=== PATIENT | male | born 1985 | race Caucasian/White ===

== ENCOUNTER → 2016-10-04 | Outpatient (CLI) | payer OTHER ==
[2016-10-04 20:10] LABS: ALBUMIN 3.8 GM/DL (3.2-5.2); ALBUMIN/GLOBULIN RATIO 1.19 (1.00-1.93); BILIRUBIN,DIRECT 0.1 MG/DL (0.0-0.2); BILIRUBIN,TOTAL 0.5 MG/DL (0.2-1.0)
[2016-10-04 20:31] LABS: BASO % 0.5 % (0.0-1.0); EOS # 0.1 K/mm3 (0.0-0.50); EOS % 1.4 % (0.0-3.0); LARGE UNSTAINED CELL # 0.1 K/mm3 (0.0-0.4); LARGE UNSTAINED CELL % 1.9 % (0.0-4.0); LYMPH # 2.2 K/mm3 (1.5-4.5); LYMPH % 32.6 % (24.0-44.0); MEAN CORPUSCULAR HEMOGLOBIN 31.4 pg (27.0-33.0); MEAN CORPUSCULAR HGB CONC 34.4 g/dl (32.0-36.5); MEAN CORPUSCULAR VOLUME 91.4 fl (80.0-96.0); MONO # 0.4 K/mm3 (0.0-0.8); MONO % 5.2 % (0.0-5.0); NEUTROPHILS % 58.4 % (36.0-66.0); PLATELET COUNT, AUTOMATED 281 k/mm3 (150-450); RED CELL DISTRIBUTION WIDTH 12.7 % (11.5-14.5); WHITE BLOOD COUNT 6.8 K/mm3 (4.0-10.0)
== END ==
LOC: M LRY 17:03
PROVIDERS: ATTEND Internal Medicine Gastroenterology
DX: K51.90 Ulcerative colitis, unspecified, without complications (principal)

== ENCOUNTER 2017-03-13 08:33 | Outpatient (RCR) | payer OTHER | END 2017-03-25 | LOC: M PT 08:33 | DX: Z51.89 Encounter for other specified aftercare (principal); L40.0 Psoriasis vulgaris ==

== ENCOUNTER 2017-03-28 12:22 | Outpatient (RCR) | payer OTHER | END 2017-04-25 | LOC: M PT 04-02 08:29 | DX: Z51.89 Encounter for other specified aftercare (principal); L40.0 Psoriasis vulgaris | CPT/HCPCS: 97028 ==

== ENCOUNTER 2017-04-26 08:55 | Outpatient (RCR) | payer OTHER | END 2017-05-23 | LOC: M PT 04-27 08:30 | DX: L40.0 Psoriasis vulgaris (principal) | CPT/HCPCS: 97028 ==

== ENCOUNTER 2018-09-02 08:57 | Emergency (ER) | payer OTHER ==
[~2018-09-02] VITALS: Ht 172.7 cm; Wt 53.2 kg
[2018-09-02 08:58] VITALS: BP 138/81
[2018-09-02] MEDS ORDERED: SUBO8MIS (09:04)
[2018-09-02] MEDS ORDERED: DELZ400C (09:04)
[2018-09-02] MEDS ORDERED: FLUORESCEIN OPHTH 1 MG STRIP OD ONE (09:30)
[2018-09-02] MEDS ORDERED: TETRACAINE 0.5% OPHTH SOLN 4ML OD ONE (09:30)
[2018-09-02] MEDS ORDERED: KETOROLAC TROMETHAMINE 10 MG TAB PO ONE (09:45)
[2018-09-02] MEDS ORDERED: CIPROFLOXACIN 0.3% OPHTH OINTMENT OU ONE (09:45)
[2018-09-02] MEDS ORDERED: KETO10TAB PO (09:47)
[2018-09-02] MEDS ORDERED: CIPR0.3S OU (09:47)
== END 2018-09-02 10:05 | disposition home or self-care (01) ==
LOC: M ED 09:44
DX: S05.01XA Injury of conjunctiva and corneal abrasion without foreign body, right eye, initial encounter (principal); X58.XXXA Exposure to other specified factors, initial encounter; Y92.89 Other specified places as the place of occurrence of the external cause; Z79.891 Long term (current) use of opiate analgesic; Z88.0 Allergy status to penicillin; F17.210 Nicotine dependence, cigarettes, uncomplicated

== ENCOUNTER 2018-09-04 10:43 | Emergency (ER) | payer OTHER ==
[~2018-09-04] VITALS: Ht 175.3 cm; Wt 54.5 kg
[~2018-09-04 10:43] MED LIST: CIPR0.3S OU; DELZ400C; KETO10TAB PO; SUBO8MIS
[2018-09-04 11:24] LABS: HEMATOCRIT 50.1 % (42.0-52.0); HEMOGLOBIN 16.4 g/dl (13.5-17.5); MEAN CORPUSCULAR HGB CONC 32.7 g/dl (32.0-36.5); MEAN CORPUSCULAR VOLUME 100.8 fl (80.0-96.0); PLATELET COUNT, AUTOMATED 447 10^3/uL (150-450); RED BLOOD COUNT 4.97 10^6/uL (4.30-6.10); WHITE BLOOD COUNT 6.1 10^3/uL (4.0-10.0)
[2018-09-04 11:55] LABS: AMPHETAMINES LEVEL URINE NEGATIVE (NEGATIVE); BARBITURATES URINE NEGATIVE (NEGATIVE); BENZODIAZEPINES URINE NEGATIVE (NEGATIVE); CANNABINOIDS URINE POSITIVE (NEGATIVE); COCAINE METABOLITE URINE NEGATIVE (NEGATIVE); METHADONE URINE NEGATIVE (NEGATIVE)
[2018-09-04 11:56] LABS: OPIATES URINE NEGATIVE (NEGATIVE); PHENCYCLIDINE URINE NEGATIVE (NEGATIVE)
[2018-09-04 12:02] LABS: ACETAMINOPHEN LEVEL < 2.0 UG/ML (10.0-30.0); ALBUMIN 3.6 GM/DL (3.2-5.2); ALT/SGPT 25 U/L (12-78); BILIRUBIN,DIRECT 0.1 MG/DL (0.0-0.2); BILIRUBIN,TOTAL 0.2 MG/DL (0.2-1.0); BLOOD UREA NITROGEN 11 MG/DL (7-18); CALCIUM LEVEL 8.6 MG/DL (8.5-10.1); CARBON DIOXIDE LEVEL 32 MEQ/L (21-32); CHLORIDE LEVEL 105 MEQ/L (98-107); CPK CREATINE PHOSPHOKINASE 256 U/L (39-308); ETHYL ALCOHOL (ETHANOL) 0.188 % (0.000-0.010); GLOMERULAR FILTRATION RATE > 60.0 (>60); GLUCOSE, FASTING 96 MG/DL (70-100); POTASSIUM SERUM 4.9 MEQ/L (3.5-5.1); SALICYLATE LEVEL < 1.7 MG/DL (5.0-30.0); SODIUM LEVEL 143 MEQ/L (136-145); THYROID STIMULATING HORMONE 0.843 uIU/ML (0.358-3.740); TOTAL PROTEIN 7.6 GM/DL (6.4-8.2)
[2018-09-04] MEDS ORDERED: BUPRENORPHINE/NALOXONE 8-2MG SUBLINGUAL TABLET(SUBOXONE) SL ONE (13:00)
[2018-09-04] MEDS ORDERED: ACETAMINOPHEN TAB 650MG DOSE (2X325MG) PO ONE (13:00)
[2018-09-04 13:41] VITALS: BP 127/72
== END 2018-09-04 13:42 | disposition home or self-care (01) ==
LOC: M ED 10:43
DX: F10.10 Alcohol abuse, uncomplicated (principal); F43.0 Acute stress reaction; F11.10 Opioid abuse, uncomplicated; L40.9 Psoriasis, unspecified; Z79.899 Other long term (current) drug therapy; Z88.0 Allergy status to penicillin
CPT/HCPCS: 80048; 80076; 80307; 82550; 84443; 85027; 99284; G0480

== ENCOUNTER → 2018-10-30 | Outpatient (CLI) | payer MEDICAID | LOC: M OUTALCOH 08:13 | PROVIDERS: ATTEND Psychiatry & Neurology Psychiatry | DX: F10.20 Alcohol dependence, uncomplicated (principal); F12.20 Cannabis dependence, uncomplicated ==

== ENCOUNTER 2018-11-05 10:52 | Outpatient (RCR) | payer MEDICAID | END 2018-11-23 | LOC: M OUTALCOH 10:52 | PROVIDERS: ATTEND Psychiatry & Neurology Psychiatry | DX: F10.20 Alcohol dependence, uncomplicated (principal); F12.10 Cannabis abuse, uncomplicated ==

== ENCOUNTER 2018-12-04 04:44 | Emergency (ER) | payer MEDICAID, OTHER ==
[~2018-12-04] VITALS: Ht 172.7 cm; Wt 65.0 kg
[2018-12-04 04:44] VITALS: BP 122/78
== END 2018-12-04 05:45 | disposition left against medical advice (07) ==
LOC: M ED 04:44
DX: H57.89 Other specified disorders of eye and adnexa (principal); Z53.21 Procedure and treatment not carried out due to patient leaving prior to being seen by health care provider

== ENCOUNTER → 2018-12-05 | Outpatient (CLI) | payer MEDICAID | LOC: M OUTALCOH 10:05 | PROVIDERS: ATTEND Psychiatry & Neurology Psychiatry | DX: Z02.89 Encounter for other administrative examinations (principal) ==

== ENCOUNTER → 2018-12-24 | Outpatient (CLI) | payer MEDICAID | LOC: M OUTALCOH 07:39 | PROVIDERS: ATTEND Psychiatry & Neurology Psychiatry | DX: F10.20 Alcohol dependence, uncomplicated (principal) ==

== ENCOUNTER 2019-01-07 11:30 | Outpatient (RCR) | payer MEDICAID | END 2019-01-23 | LOC: M OUTALCOH 11:30 | PROVIDERS: ATTEND Psychiatry & Neurology Psychiatry | DX: F10.20 Alcohol dependence, uncomplicated (principal); F12.10 Cannabis abuse, uncomplicated ==

== ENCOUNTER → 2020-09-21 | Outpatient (CLI) | payer MEDICAID ==
[~2020-09-21] MED LIST changes: -CIPR0.3S OU; +CIPR0.3S6 OU; -DELZ400C; +DELZ400C5
== END ==
LOC: M OUTALCOH 07:49
PROVIDERS: ATTEND Psychiatry & Neurology Psychiatry
DX: Z03.89 Encounter for observation for other suspected diseases and conditions ruled out (principal)

== ENCOUNTER 2022-09-13 07:51 | Emergency (ER) | payer MEDICAID, OTHER ==
[~2022-09-13] VITALS: Ht 172.7 cm; Wt 73.9 kg
[~2022-09-13 07:51] MED LIST changes: +CIPR0.3S37 OU; -CIPR0.3S6 OU
[2022-09-13] MEDS ORDERED: ACETAMINOPHEN 500 MG TAB PO ONE (08:30)
[2022-09-13 10:38] VITALS: BP 129/90; TEMP 98.4; O2SAT 97
== END 2022-09-13 10:42 | disposition home or self-care (01) ==
LOC: M ED 07:51
DX: S80.11XA Contusion of right lower leg, initial encounter (principal); X58.XXXA Exposure to other specified factors, initial encounter; Y99.0 Civilian activity done for income or pay; Z88.0 Allergy status to penicillin

== ENCOUNTER 2022-11-20 10:41 | Emergency (ER) | payer OTHER ==
[~2022-11-20] VITALS: Ht 172.7 cm; Wt 71.5 kg
[2022-11-20] MEDS ORDERED: PANTOPRAZOLE 40MG VIAL IV ONE (12:05)
[2022-11-20] MEDS ORDERED: NS 1,000 ML IV ONE (12:05)
[2022-11-20] MEDS ORDERED: methylPREDNISolone 125MG 2ML VIAL IV ONE (12:05)
[2022-11-20 13:04] LABS: BASO % 0.7 % (0.0-1.0); EOS % 0.7 % (0.0-3.0); HEMOGLOBIN 13.8 g/dl (13.5-17.5); LYMPH # 1.4 10^3/uL (1.5-5.0); LYMPH % 25.3 % (24.0-44.0); MEAN CORPUSCULAR HEMOGLOBIN 32.6 pg (27.0-33.0); MEAN CORPUSCULAR HGB CONC 34.5 g/dl (32.0-36.5); MEAN CORPUSCULAR VOLUME 94.6 fl (80.0-96.0); MONO # 0.4 10^3/uL (0.0-0.8); MONO % 7.1 % (2.0-8.0); NEUTROPHILS # 3.6 10^3/uL (1.5-8.5); NEUTROPHILS % 65.8 % (36.0-66.0); PLATELET COUNT, AUTOMATED 268 10^3/uL (150-450); RED BLOOD COUNT 4.23 10^6/uL (4.30-6.10); WHITE BLOOD COUNT 5.5 10^3/uL (4.0-10.0)
[2022-11-20] MEDS ORDERED: ISOVUE-370 76% 100ML VIAL As Ordered ONE (13:14)
[2022-11-20 13:16] LABS: INR 1.01; PARTIAL THROMBOPLASTIN TIME 24.3 SECONDS (24.8-34.2)
[2022-11-20 13:30] LABS: ALBUMIN 3.4 G/DL (3.2-5.2); BILIRUBIN,DIRECT 0.2 MG/DL (<0.4); BILIRUBIN,TOTAL 0.5 MG/DL (0.3-1.2); TOTAL PROTEIN 6.5 G/DL (5.7-8.2)
[2022-11-20] MEDS ORDERED: PROT1TAB2 PO (14:07)
[2022-11-20] MEDS ORDERED: HYDR-3713 PO (14:07)
[2022-11-20] MEDS ORDERED: PRED20TA PO (14:07)
[2022-11-20 14:25] VITALS: BP 142/84; TEMP 97.8; O2SAT 99
== END 2022-11-20 14:31 | disposition home or self-care (01) ==
LOC: M ED 10:41
DX: K51.90 Ulcerative colitis, unspecified, without complications (principal); Z88.0 Allergy status to penicillin
CPT/HCPCS: 74177; 80047; 80076; 81001; 83605; 83690; 85025; 85610; 85730; 96374; 96375; 99284; C9113; J2930; Q9967

== ENCOUNTER → 2022-11-29 | Outpatient (REF) | payer OTHER ==
[~2022-11-29] MED LIST changes: +HYDR-3713 PO; +PRED20TA PO; +PROT1TAB2 PO
[2022-11-29 15:05] LABS: HEMOGLOBIN A1c 5.1 % (4.0-6.0)
[2022-11-29 15:20] LABS: ALBUMIN 3.3 G/DL (3.2-5.2); ALKALINE PHOSPHATASE 61 U/L (46-116); ALT/SGPT 48 U/L (7.0-40); AST/SGOT 37 U/L (<34); BILIRUBIN,TOTAL 0.4 MG/DL (0.3-1.2); BLOOD UREA NITROGEN 15 MG/DL (9-23); CALCIUM LEVEL 8.4 MG/DL (8.5-10.1); CARBON DIOXIDE LEVEL 27 MMOL/L (20-31); CHLORIDE LEVEL 103 MMOL/L (98-107); CHOLESTEROL LEVEL 208 MG/DL (<200); CHOLESTEROL RISK RATIO 1.84 (<5); CREATININE FOR GFR 0.94 MG/DL (0.70-1.30); GLOMERULAR FILTRATION RATE > 60.0 (>60); GLUCOSE, FASTING 80 MG/DL (60-100); HDL CHOLESTEROL 112.7 MG/DL (>40); LDL CHOLESTEROL 77.9 MG/DL (<100); NON-HDL-C 95.3 MG/DL; POTASSIUM SERUM 3.7 MMOL/L (3.5-5.1); SODIUM LEVEL 138 MMOL/L (136-145); THYROID STIMULATING HORMONE 1.696 uIU/ML (0.55-4.78); TOTAL 25(OH) VITAMIN D 45.8 NG/ML (20.0-100.0); TOTAL PROTEIN 6.3 G/DL (5.7-8.2); TRIGLYCERIDES LEVEL 87 MG/DL (<150)
== END ==
LOC: M LAB REF 12:48
PROVIDERS: ATTEND Nurse Practitioner Family
DX: Z13.228 Encounter for screening for other metabolic disorders (principal)